=== PATIENT | female | born 1990 | race Caucasian/White ===

== ENCOUNTER 2016-03-30 15:09 | Emergency (ER) | payer BC, OTHER ==
[~2016-03-30] VITALS: Wt 80.0 kg
[~2016-03-30 15:09] MED LIST: ONDA4TAB35 PO
[2016-03-30] MEDS ORDERED: DIPHENHYDRAMINE 50 MG CAP PO ONE (16:00)
[2016-03-30 16:18] LABS: BASOPHIL # 0.2 10^3/ul (0.0-0.1); BASOPHILS % 2.3 % (0.0-2.0); EOSINOPHILS # 0.2 10^3/ul (0.0-0.5); EOSINOPHILS % 2.3 % (0.0-7.0); HEMATOCRIT 42.4 % (37.0-47.0); HEMOGLOBIN 14.3 g/dl (12.0-16.0); LYMPHOCYTES # 1.1 10^3/ul (0.8-2.9); LYMPHOCYTES % 15.8 % (15.0-51.0); MEAN CORPUSCULAR HEMOGLOBIN 27.3 pg (29.0-33.0); MEAN CORPUSCULAR HGB CONC 33.6 g/dl (32.0-37.0); MEAN CORPUSCULAR VOLUME 81.3 fl (82.0-101.0); MEAN PLATELET VOLUME 9.3 fl (7.4-10.4); MONOCYTE # 0.3 10^3/ul (0.3-0.9); MONOCYTES % 3.7 % (0.0-11.0); NEUTROPHIL # 5.4 10^3/ul (1.6-7.5); NEUTROPHILS % 75.9 % (39.0-77.0); PLATELET COUNT 310 10^3/UL (140-440); RED BLOOD COUNT 5.22 10^6/ul (4.20-5.40); RED CELL DISTRIBUTION WIDTH 14.2 % (11.5-14.5); UNCORRECTED WBC 7.1 10^3/ul (4.8-10.8); WHITE BLOOD COUNT 7.1 10^3/ul (4.8-10.8)
[2016-03-30 16:22] LABS: CONDITION 1; LH ANALYZER COMMENTS 1
[2016-03-30 16:24] LABS: ALBUMIN 4.4 g/dl (3.3-4.9); POTASSIUM 4.2 mmol/L (3.5-5.1)
[2016-03-30 16:26] LABS: BILIRUBIN,INDIRECT 0.6 mg/dl (0-1.1); BILIRUBIN,TOTAL 0.6 mg/dl (0.2-1.3); CREATININE 0.68 mg/dl (0.44-1.00)
[2016-03-30 16:27] LABS: ALBUMIN/GLOBULIN RATIO 1.25; TOTAL PROTEIN 7.9 g/dl (6.1-8.1)
[2016-03-30] MEDS ORDERED: BEN25 PO (17:05)
[2016-03-30] MEDS ORDERED: PRED20TA PO (17:05)
[2016-03-30] MEDS ORDERED: HC30CR25 TOP (17:06)
--- NOTE | 2016-03-30 17:10 | ERD ---
ER Documentation Chief Complaint Date/Time DATE: 03/30/16 TIME: 17:08 Chief Complaint GENERAL RASH AND PAIN SINCE YESTERDAY. WORSE WITH COLD WEATHER. NO SOB HPI This 25-year-old female complains of worsening rash for the last day. She has a history of psoriasis and has intermittent flareups on her extremities but she has had a significant worsening of the rash on her right arm of the last 2 days. She was treated with an injection of steroids approximately 2 weeks ago by her primary doctor for the beginning of flareup. The rash is worsening over the last 2 days particularly the right arm per she denies any recent illnesses or fevers cough or shortness of breath or sore throat. ROS All systems reviewed and are negative except as per history of present illness. Medications Home Meds Active Scripts Hydrocortisone* Topical (Hydrocortisone* Topical) 2.5%-28.3 Gm Cream..g., 1 APPLIC TOP BID for 7 Days, #1 TUB Prov:JESSICA DALY MD 03/30/16 Diphenhydramine Hcl* (Benadryl*) 25 Mg Cap, 25 MG PO Q6, #15 CAP Prov:JESSICA DALY MD 03/30/16 Prednisone* (Prednisone*) 20 Mg Tab, 40 MG PO DAILY for 4 Days, TAB Start March 31, 2016 Prov:JESSICA DALY MD 03/30/16 Ondansetron Hcl* (Zofran* ODT) 4 mg -ODT Tab.disper, 4 MG PO Q6 Y for NAUSEA AND /OR VOMITING, #10 TAB Prov:RAD MEDINA DO 08/08/15 Allergies Allergies: Coded Allergies: No Known Allergy (Unverified , 08/08/15) PMhx/Soc Hx Alcohol Use: Yes Physical Exam Vitals Vital Signs Date Time Temp Pulse Resp B/P Pulse Ox O2 Delivery O2 Flow Rate FiO2 03/30/16 15:15 97.4 100 20 137/82 98 Physical Exam Const: [] Alert, [id number]. Head: Atraumatic Eyes: Normal Conjunctiva ENT: Normal External Ears, Nose and Mouth. Neck: Full range of motion..~ No meningismus. Resp: Clear to auscultation bilaterally Cardio: Regular rate and rhythm, no murmurs Abd: Soft, non tender, non distended. Normal bowel sounds Skin: No petechiae or vesicles. There is a mostly nonblanching maculopapular rash on extremities on the right forearm and biceps area worse than the left although similar appearance. There are minimally tender without skin changes. There is no warmth, erythema or streaking. Back: No midline or flank tenderness Ext: No cyanosis, or edema Neur: Awake and alert Psych: Normal Mood and Affect Result Diagram: 03/30/16 1600 03/30/16 1600 Results 24 hrs Laboratory Tests Test 03/30/16 16:00 Alanine Aminotransferase (ALT/SGPT) 33IU/L Albumin 4.4g/dl Albumin/Globulin Ratio 1.25 Alkaline Phosphatase 146IU/L Anion Gap 17 Aspartate Amino Transf (AST/SGOT) 23IU/L Basophils # 0.210^3/ul Basophils % 2.3% Blood Morphology Comment Blood Urea Nitrogen 7mg/dl Calcium Level 9.0mg/dl Carbon Dioxide Level 30mmol/L Chloride Level 104mmol/L Creatinine 0.68mg/dl Direct Bilirubin 0.00mg/dl Eosinophils # 0.210^3/ul Eosinophils % 2.3% Globulin 3.50g/dl Glucose Level 99mg/dl Hematocrit 42.4% Hemoglobin 14.3g/dl Indirect Bilirubin 0.6mg/dl Lymphocytes # 1.110^3/ul Lymphocytes % 15.8% Mean Corpuscular Hemoglobin 27.3pg Mean Corpuscular Hemoglobin Concent 33.6g/dl Mean Corpuscular Volume 81.3fl Mean Platelet Volume 9.3fl Monocytes # 0.310^3/ul Monocytes % 3.7% Monoscreen Negative Neutrophils # 5.410^3/ul Neutrophils % 75.9% Nucleated Red Blood Cells # 0.010^3/ul Nucleated Red Blood Cells % 0.0/100WBC Platelet Count 70727^3/UL Potassium Level 4.2mmol/L Red Blood Count 5.2210^6/ul Red Cell Distribution Width 14.2% Sodium Level 147mmol/L Total Bilirubin 0.6mg/dl Total Protein 7.9g/dl White Blood Count 7.110^3/ul Current Medications Medications (Trade) Dose Ordered Sig/Regina Route PRN Reason Start Time Stop Time Status Last Admin Dose Admin Diphenhydramine HCl (Benadryl) 50 mg ONCE ONCE PO 03/30/16 16:00 03/30/16 16:01 DC 03/30/16 15:57 Procedures/MDM Disposition presents with a rash of uncertain etiology with a history of psoriasis. CBC and CMP show no acute abnormalities a Monospot is negative. May be a worsening of her psoriasis. Throat is nonblanching the patient has no signs or symptoms of suggestion of purpura or sepsis. Patient will be treated with a course of prednisone, Benadryl and hydrocortisone and observation at home. I suspect she may have a viral exanthem worsening her pre-existing skin condition. Patient should return immediately for fevers, vomiting, shortness breath or new worsening symptoms otherwise with primary doctor this week. The patient was stable with no new complaints during the ER course. Clinically, there is no current evidence to suggest meningitis, sepsis, acute abdomen, pneumonia, acute coronary syndrome, pulmonary embolism, or any other emergent condition appearing to require further evaluation or hospitalization. The patient should certainly return for any new or worsening symptoms per the aftercare instructions. They should otherwise follow-up with her primary care doctor for reevaluation this week. Departure Diagnosis: Primary Impression: Rash Condition: Stable Patient Instructions: Dermatitis, Non-Specific, Viral Rash, Exanthem (Child) Additional Instructions: Labs normal today. Possible viral reaction. Recommend further observation at home, cold compresses, recheck for fevers, shortness breath, vomiting, new or worsening symptoms with primary doctor this week. JESSICA DALY MD Mar 30, 2016 17:10
[2016-03-30] MEDS ORDERED: predniSONE 20 MG TAB PO ONE (17:30)
== END 2016-03-30 17:20 | disposition home or self-care (01) ==
LOC: FTE 15:09
DX: R21 Rash and other nonspecific skin eruption (principal)
CPT/HCPCS: 80053; 85025; 86308; J7512; 99283

== ENCOUNTER 2018-12-25 09:34 | Emergency (ER) | payer BC, OTHER ==
[~2018-12-25] VITALS: Ht 162.6 cm; Wt 84.7 kg
[~2018-12-25 09:34] MED LIST changes: +BEN25 PO; +HC30CR25 TOP; +LOPE2CAP PO; +ONDA4TAB8 PO; +PRED20TA PO
[2018-12-25 09:42] VITALS: Ht 162.6 cm; Wt 84.7 kg
[2018-12-25] MEDS ORDERED: ONDANSETRON 4 MG INJ IV STA (10:36)
[2018-12-25] MEDS ORDERED: LOPERAMIDE 2 MG CAP PO ONE (11:00)
[2018-12-25] MEDS ORDERED: SOD CHLORIDE 0.9% 1,000 ML IV ONE (11:00)
[2018-12-25 12:50] VITALS: BP 125/78; PULSE 81; RESP 18
== END 2018-12-25 12:53 | disposition home or self-care (01) ==
LOC: FTE 09:34
DX: R11.10 Vomiting, unspecified (principal); R19.7 Diarrhea, unspecified
CPT/HCPCS: 36415; 80048; 81001; 84702; 85025; 96374; 96375; 99284; J2405; J7030; 81003